=== PATIENT | male | born 1995 | race Caucasian/White ===

== ENCOUNTER 2018-02-23 16:02 | Emergency (ER) | payer BC ==
--- NOTE | 2018-02-23 16:58 | EDM.PDOC ---
ED HPI GENERAL MEDICAL PROBLEM - General Chief Complaint: Upper Extremity Injury/Pain Stated Complaint: INJURED RT HAND Time Seen by Provider: 02/23/18 16:23 Source of Information: Reports: Patient History Limitations: Reports: No Limitations - History of Present Illness INITIAL COMMENTS - FREE TEXT/NARRATIVE: HISTORY AND PHYSICAL: History of present illness: Patient is a 23-year-old male who presents to the emergency room with complaints of right hand pain. He states approximately 5 days ago he woke up with pain and swelling to the proximal right third digit. He does have multiple abrasions and superficial scratches to his hands and forearms bilaterally. He states "this is unrelated" and is unsure of how these occurred. He states he does scratch himself a lot indoor bump into things at work. Denies any fever, chills, chest pain, shortness of breath or cough. Denies any GI or symptoms. Review of systems: As per history of present illness and below otherwise all systems reviewed and negative. Past medical history: As per history of present illness and as reviewed below otherwise noncontributory. Surgical history: As per history of present illness and as reviewed below otherwise noncontributory. Social history: See social history for further information Family history: As per history of present illness and as reviewed below otherwise noncontributory. Physical exam: General: 23-year-old male. Alert and oriented. Nontoxic appearing and in no acute distress. HEENT: Atraumatic, normocephalic, pupils equal and reactive bilaterally, negative for conjunctival pallor or scleral icterus, mucous membranes moist, throat clear, neck supple, nontender, trachea midline. No drooling or trismus noted. No meningeal signs Lungs: Clear to auscultation, breath sounds equal bilaterally, chest nontender. Heart: S1S2, regular rate and rhythm without overt murmur Abdomen: Soft, nondistended, nontender. Negative for masses or hepatosplenomegaly. Negative for costovertebral tenderness. Pelvis: Stable nontender. Genitourinary: Deferred. Rectal: Deferred. Skin: Soft tissue swelling, redness and discomfort along the proximal right third MCP joint. Nonfluctuant, nonindurated. No drainage from the site. Multiple superficial abrasions and superficial scratches noted to bilateral forearms and hands. Otherwise skin is Intact, warm, dry. No lesions or rashes noted. Extremities: Atraumatic, moves all extremities per self without difficulty or deficits. negative for cords or calf pain. Neurovascular unremarkable. Neuro: Awake, alert, oriented. Cranial nerves II through XII unremarkable. Cerebellum unremarkable. Motor and sensory unremarkable throughout. Exam nonfocal. Notes: There is soft tissue swelling of the hand particularly along the MCP joint. No soft tissue gas seen. No foreign body. No fracture or subluxation or dislocation. The patient does have multiple abrasions and superficial scratches to bilateral forearms. There is one in particular along the right third digit where there is soft tissue swelling. He is unsure of why he has an abrasion at that site. It does look like an early cellulitis and therefore will treat it with Keflex. Encouraged him to follow-up with the hand surgeon or his primary care provider on Sunday. We discussed signs and symptoms that would prompt him to return to the emergency room. He voices understanding and is agreeable to plan of care. Diagnostics: Xray Therapeutics: Splint, Tdap Prescription: Keflex Tramadol Impression: Cellulitis, right hand Plan: 1. Keep your skin clean and dry. Continue to monitor for signs of improvement. Use the splint for comfort as directed. 2.Take your medications as directed. 3. Follow up with the Hand Surgeon or your primary care provider on Sunday. Return to the ED as needed and as discussed. Definitive disposition and diagnosis as appropriate pending reevaluation and review of above. Hand Pain Score (Numeric/FACES): 5 - Related Data Allergies Allergy/AdvReac Type Severity Reaction Status Date / Time No Known Allergies Allergy Verified 02/23/18 16:29 Home Meds: Home Meds Cephalexin [Keflex] 500 mg PO BID 7 Days #14 capsule 02/23/18 [Rx] traMADol [Ultram] 50 mg PO Q4H PRN #15 tab 02/23/18 [Rx] Past Medical History - Past Health History Medical/Surgical History: Denies Medical/Surgical History Social & Family History - Family History Family Medical History: Noncontributory - Tobacco Use Smoking Status *Q: Current Every Day Smoker Years of Tobacco use: 3 Packs/Tins Daily: 0.5 - Recreational Drug Use Recreational Drug Use: No Review of Systems - Review of Systems Review Of Systems: ROS reveals no pertinent complaints other than HPI. ED EXAM, GENERAL - Physical Exam Exam: See Below (See dictation) Course - Vital Signs Last Recorded V/S: Last Vital Signs Temp 97.2 F 02/23/18 16:27 Pulse 90 02/23/18 16:27 Resp 16 02/23/18 16:27 BP 120/76 02/23/18 16:27 Pulse Ox 98 02/23/18 16:27 - Orders/Labs/Meds Orders: Active Orders 24 hr Category Date Time Status Hand 2V Rt [CR] Stat Exams 02/23/18 16:08 Taken DME for Discharge [COMM] Stat Oth 02/23/18 17:11 Ordered Departure - Departure Time of Disposition: 17:17 Disposition: Home, Self-Care 01 Clinical Impression: Cellulitis Qualifiers: Site of cellulitis: extremity Site of cellulitis of extremity: upper extremity Laterality: right Qualified Code(s): L03.113 - Cellulitis of right upper limb - Discharge Information Prescriptions: Cephalexin [Keflex] 500 mg PO BID 7 Days #14 capsule traMADol [Ultram] 50 mg PO Q4H PRN #15 tab PRN Reason: Pain Referrals: PCP,Unknown [Primary Care Provider] - Forms: ED Department Discharge Additional Instructions: The following information is given to patients seen in the emergency department who are being discharged to home. This information is to outline your options for follow-up care. We provide all patients seen in our emergency department with a follow-up referral. The need for follow-up, as well as the timing and circumstances, are variable depending upon the specifics of your emergency department visit. If you don't have a primary care physician on staff, we will provide you with a referral. We always advise you to contact your personal physician following an emergency department visit to inform them of the circumstance of the visit and for follow-up with them and/or the need for any referrals to a consulting specialist. The emergency department will also refer you to a specialist when appropriate. This referral assures that you have the opportunity for follow-up care with a specialist. All of these measure are taken in an effort to provide you with optimal care, which includes your follow-up. Under all circumstances we always encourage you to contact your private physician who remains a resource for coordinating your care. When calling for follow-up care, please make the office aware that this follow-up is from your recent emergency room visit. If for any reason you are refused follow-up, please contact the [facility] Emergency Department at and asked to speak to the emergency department charge nurse. [facility] [address] [place] [address] [facility] [address] [place] [id number] [facility] - [facility] Professional Building [address] [place] [address], [address] [place] [address] 1. Keep your skin clean and dry. Continue to monitor for signs of improvement. Use the splint for comfort as directed. 2.Take your medications as directed. 3. Follow up with the Hand Surgeon or your primary care provider on Sunday. Return to the ED as needed and as discussed. - My Orders Last 24 Hours: My Active Orders 02/23/18 16:08 Hand 2V Rt [CR] Stat 02/23/18 17:11 DME for Discharge [COMM] Stat - Assessment/Plan Last 24 Hours: My Active Orders 02/23/18 16:08 Hand 2V Rt [CR] Stat 02/23/18 17:11 DME for Discharge [COMM] Stat
--- NOTE | 2018-02-25 17:43 | CR ---
EXAM DATE: 02/23/18 PATIENT'S AGE: 23 Patient: SANDEEP MARCOS Facility: [place], [place] Site . Site : 1995 Study: XRay Extremity Right hand [id number] 4:35:53 PM Ordering Physician: Doctor Noguera Final Report: INDICATION: Swelling and pain. TECHNIQUE: Three views of the right hand. COMPARISON: None. IMPRESSION: There is soft tissue swelling of the hand, particularly along the dorsum of the MCP joints. No soft tissue gas is seen. No foreign body. No fracture, subluxation or dislocation. Dictated by Jose Nolasco MD @ 02/23/2018 4:56:58 PM Dictated by: Jose Nolasco MD @ 02/23/2018 16:57:11 (Electronic Signature) Report Signed by Proxy. TALITA
== END 2018-02-23 17:40 | disposition home or self-care (01) ==
LOC: MW.ED 16:02
DX: S50.812A Abrasion of left forearm, initial encounter (principal); S50.811A Abrasion of right forearm, initial encounter; S60.512A Abrasion of left hand, initial encounter; S60.511A Abrasion of right hand, initial encounter; L03.113 Cellulitis of right upper limb; F17.210 Nicotine dependence, cigarettes, uncomplicated; W22.8XXA Striking against or struck by other objects, initial encounter
CPT/HCPCS: 73120-26-RT; 73120-RT; 99283

== ENCOUNTER 2018-03-23 18:31 | Day surgery (SDC) | payer BC ==
[2018-03-23] MEDS ORDERED: Sodium Chloride 0.9% 1,000 ML IV ONE ×2 (19:06→20:37)
[2018-03-23] MEDS ORDERED: Ondansetron 4 MG/2 ML SDV IVPUSH ONE (19:06)
[2018-03-23] MEDS ORDERED: Pantoprazole 40 MG Vial IVPUSH ONE (19:06)
[2018-03-23] MEDS ORDERED: Sodium Chloride 0.9% 10 ML Syringe FLUSH PRN ×2 (19:06→22:45)
[2018-03-23] MEDS ORDERED: Sodium Chloride 0.9% 2.5 ML Syringe FLUSH PRN ×2 (19:06→22:45)
--- NOTE | 2018-03-23 19:09 | EDM.PDOC ---
ED HPI GENERAL MEDICAL PROBLEM - General Chief Complaint: Abdominal Pain Stated Complaint: STOMACH PAIN Time Seen by Provider: 03/23/18 18:59 - History of Present Illness INITIAL COMMENTS - FREE TEXT/NARRATIVE: HISTORY AND PHYSICAL: History of present illness: The patient is a 23-year-old male with no significant GI history or abdominal surgical history who presents with complaints of mid abdominal pain and epigastric pain that started last evening and started gradually. He says he has had issues with heartburn like pain and has never been worked up for peptic ulcer disease or have seen her provider for these pain in the past. He says this is similar to prior episodes but it is lasting longer and seems to be more intense. The pain does not radiate to the lower abdomen or to the flanks and he has no urinary complaints. He had a normal bowel movement yesterday but no bowel movement today and his last stool was not black or bloody. He did not start vomiting until today and says that his last vomit was approximately 2 hours ago but he is been able to take some sips of water. He has not eaten all day. He drinks a lot of caffeinated products and admits to eating a poor diet filled with fast food. He denies alcohol use except for occasional social reasons. He describes the pain as a burning and aching and it does not radiate to his chest. He has no chest pain shortness of breath fevers chills or upper respiratory symptoms. Review of systems: As per history of present illness and below otherwise all systems reviewed and negative. Past medical history: As per history of present illness and as reviewed below otherwise noncontributory. Surgical history: As per history of present illness and as reviewed below otherwise noncontributory. Social history: No reported history of drug or alcohol abuse. Family history: As per history of present illness and as reviewed below otherwise noncontributory. Physical exam: General: Well-developed well-nourished thin man who is nontoxic and moves easily in the ED vital signs were noted by me HEENT: Atraumatic, normocephalic, negative for conjunctival pallor or scleral icterus, mucous membranes moist, throat clear, neck supple, nontender, trachea midline. Lungs: Clear to auscultation, breath sounds equal bilaterally, chest nontender. Heart: S1S2, regular rate and rhythm no overt murmurs Abdomen: Soft, nondistended, mild tenderness in the epigastrium and upper quadrants bilaterally without localization right or left. There is some tympany on percussion and bowel sounds are hypoactive. Negative for masses or hepatosplenomegaly. Negative for costovertebral tenderness. Pelvis: Stable nontender. Genitourinary: Deferred. Rectal: Deferred. Extremities: Atraumatic, negative for cords or calf pain. Neurovascular unremarkable. Neuro: Awake, alert, oriented. Cranial nerves II through XII unremarkable. Cerebellum unremarkable. Motor and sensory unremarkable throughout. Exam nonfocal. Diagnostics: CBC CMP amylase lipase H. pylori UA EKG abdominal x-rays with chest CT scan of the abdomen and pelvis Therapeutics: IV, IV fluids Protonix Zofran GI cocktail morphine Zosyn lactated Ringer's IV fluids maintenance Reevaluation the patient says he is no longer nauseated but he is still having this vague upper mid abdominal pain despite medications. I will give him a dose of morphine and a GI cocktail and proceed to do CT scan of the abdomen and pelvis 220: CT scan was called to me by the radiologist and he does have appendicitis. Dr. Yu is also aware at this time and will come in to evaluate the patient. She would like me to give him Zosyn and lactated Ringer's IV fluids. I discussed the testing results with the patient and he is also aware that he will need surgery. Impression: Upper abdominal pain with vomiting, appendicitis Definitive disposition and diagnosis as appropriate pending reevaluation and review of above. Upper Abdomen Pain Score (Numeric/FACES): 8 - Related Data Allergies Allergy/AdvReac Type Severity Reaction Status Date / Time No Known Allergies Allergy Verified 03/23/18 18:58 Home Meds: Home Meds . [No Known Home Meds] 03/23/18 [History] Past Medical History - Past Health History Medical/Surgical History: Denies Medical/Surgical History Musculoskeletal History: Reports: Arthritis Social & Family History - Family History Family Medical History: Noncontributory - Tobacco Use Smoking Status *Q: Current Every Day Smoker Years of Tobacco use: 4 Packs/Tins Daily: 0.5 - Recreational Drug Use Recreational Drug Use: No ED ROS GENERAL - Review of Systems Review Of Systems: ROS reveals no pertinent complaints other than HPI. ED EXAM, GENERAL - Physical Exam Exam: See Below (See dictation) Course - Vital Signs Last Recorded V/S: Last Vital Signs Temp 37.2 C 03/23/18 18:56 Pulse 100 03/23/18 21:14 Resp 18 03/23/18 21:14 BP 107/63 03/23/18 21:14 Pulse Ox 99 03/23/18 21:14 - Orders/Labs/Meds Orders: Active Orders 24 hr Category Date Time Status EKG Documentation Completion [RC] STAT Care 03/23/18 19:05 Active EKG Documentation Completion [RC] STAT Care 03/23/18 20:10 Active Lactated Ringers @ 125 MLS/HR(1,000ml) Med 03/23/18 22:15 Ordered Lactated Ringers [Ringers, Lactated] 1,000 ml IV ASDIRECTED Piperacillin/Tazobactam [Piperacil-Tazobact] 3.375 gm Med 03/23/18 22:10 Ordered Sodium Chloride 0.9% [Normal Saline] 50 ml IV ONETIME Sodium Chloride 0.9% [Saline Flush] Med 03/23/18 19:06 Active 10 ml FLUSH ASDIRECTED PRN Sodium Chloride 0.9% [Saline Flush] Med 03/23/18 19:06 Active 2.5 ml FLUSH ASDIRECTED PRN Saline Lock Insert [OM.PC] Stat Oth 03/23/18 19:05 Ordered Medication Orders Sodium Chloride (Saline Flush) 10 ml FLUSH ASDIRECTED PRN PRN Reason: Keep Vein Open Last Admin: 03/23/18 19:37 Dose: 10 ml Sodium Chloride (Saline Flush) 2.5 ml FLUSH ASDIRECTED PRN PRN Reason: Keep Vein Open Last Admin: 03/23/18 19:39 Dose: 2.5 ml Labs: Laboratory Tests 03/23/18 03/23/18 03/23/18 Range/Units 19:30 19:30 19:30 WBC 14.67 H (4.0-11.0) K/uL RBC 4.58 (4.50-5.90) M/uL Hgb 13.9 (13.0-17.0) g/dL Hct 40.9 (38.0-50.0) % MCV 89.3 (80.0-98.0) fL MCH 30.3 (27.0-32.0) pg MCHC 34.0 (31.0-37.0) g/dL RDW Std Deviation 42.5 (28.0-62.0) fl RDW Coeff of King 13 (11.0-15.0) % Plt Count 204 (150-400) K/uL MPV 10.80 (7.40-12.00) fL Neut % (Auto) 86.1 H (48.0-80.0) % Lymph % (Auto) 9.7 L (16.0-40.0) % [place] % (Auto) 3.9 (0.0-15.0) % Eos % (Auto) 0.2 (0.0-7.0) % Baso % (Auto) 0.1 (0.0-1.5) % Neut # (Auto) 12.6 H (1.4-5.7) K/uL Lymph # (Auto) 1.4 (0.6-2.4) K/uL [place] # (Auto) 0.6 (0.0-0.8) K/uL Eos # (Auto) 0.0 (0.0-0.7) K/uL Baso # (Auto) 0.0 (0.0-0.1) K/uL Nucleated RBC % 0.0 /100WBC Nucleated RBCs # 0 K/uL Sodium 139 (136-148) mmol/L Potassium 4.1 (3.5-5.1) mmol/L Chloride 103 (98-107) mmol/L Carbon Dioxide 25.1 (21.0-32.0) mmol/L BUN 20 H (7.0-18.0) mg/dL Creatinine 1.0 (0.8-1.3) mg/dL Est Cr Clr Drug Dosing 104.56 mL/min Estimated GFR (MDRD) > 60.0 ml/min Glucose 97 (74-106) mg/dL Calcium 9.9 (8.5-10.1) mg/dL Total Bilirubin 0.8 (0.2-1.0) mg/dL AST 14 L (15-37) IU/L ALT 12 L (14-63) IU/L Alkaline Phosphatase 108 (46-116) U/L Troponin I (0.000-0.056) ng/mL Total Protein 8.2 (6.4-8.2) g/dL Albumin 4.5 (3.4-5.0) g/dL Globulin 3.7 (2.6-4.0) g/dL Albumin/Globulin Ratio 1.2 (0.9-1.6) Amylase 55 (25-115) U/L Lipase 72 L (73-393) U/L Urine Color Urine Appearance Urine pH (5.0-8.0) Ur Specific Mchenry (1.001-1.035) Urine Protein (NEGATIVE) mg/dL Urine Glucose (UA) (NEGATIVE) mg/dL Urine Ketones (NEGATIVE) mg/dL Urine Occult Blood (NEGATIVE) Urine Nitrite (NEGATIVE) Urine Bilirubin (NEGATIVE) Urine Ictotest Urine Urobilinogen (<2.0) EU/dL Ur Leukocyte Esterase (NEGATIVE) H. pylori IgG Antibody NEGATIVE (NEG) 03/23/18 03/23/18 Range/Units 19:30 20:04 WBC (4.0-11.0) K/uL RBC (4.50-5.90) M/uL Hgb (13.0-17.0) g/dL Hct (38.0-50.0) % MCV (80.0-98.0) fL MCH (27.0-32.0) pg MCHC (31.0-37.0) g/dL RDW Std Deviation (28.0-62.0) fl RDW Coeff of King (11.0-15.0) % Plt Count (150-400) K/uL MPV (7.40-12.00) fL Neut % (Auto) (48.0-80.0) % Lymph % (Auto) (16.0-40.0) % [place] % (Auto) (0.0-15.0) % Eos % (Auto) (0.0-7.0) % Baso % (Auto) (0.0-1.5) % Neut # (Auto) (1.4-5.7) K/uL Lymph # (Auto) (0.6-2.4) K/uL [place] # (Auto) (0.0-0.8) K/uL Eos # (Auto) (0.0-0.7) K/uL Baso # (Auto) (0.0-0.1) K/uL Nucleated RBC % /100WBC Nucleated RBCs # K/uL Sodium (136-148) mmol/L Potassium (3.5-5.1) mmol/L Chloride (98-107) mmol/L Carbon Dioxide (21.0-32.0) mmol/L BUN (7.0-18.0) mg/dL Creatinine (0.8-1.3) mg/dL Est Cr Clr Drug Dosing mL/min Estimated GFR (MDRD) ml/min Glucose (74-106) mg/dL Calcium (8.5-10.1) mg/dL Total Bilirubin (0.2-1.0) mg/dL AST (15-37) IU/L ALT (14-63) IU/L Alkaline Phosphatase (46-116) U/L Troponin I < 0.050 (0.000-0.056) ng/mL Total Protein (6.4-8.2) g/dL Albumin (3.4-5.0) g/dL Globulin (2.6-4.0) g/dL Albumin/Globulin Ratio (0.9-1.6) Amylase (25-115) U/L Lipase (73-393) U/L Urine Color YELLOW Urine Appearance HAZY Urine pH 6.0 (5.0-8.0) Ur Specific Mchenry 1.025 (1.001-1.035) Urine Protein NEGATIVE (NEGATIVE) mg/dL Urine Glucose (UA) NEGATIVE (NEGATIVE) mg/dL Urine Ketones >=80 (NEGATIVE) mg/dL Urine Occult Blood NEGATIVE (NEGATIVE) Urine Nitrite NEGATIVE (NEGATIVE) Urine Bilirubin SMALL H (NEGATIVE) Urine Ictotest NEGATIVE Urine Urobilinogen 0.2 (<2.0) EU/dL Ur Leukocyte Esterase NEGATIVE (NEGATIVE) H. pylori IgG Antibody (NEG) Meds: Medications Generic Name Dose Route Start Last Admin Trade Name Freq PRN Reason Stop Dose Admin Sodium Chloride 10 ml 03/23/18 19:06 03/23/18 19:37 Saline Flush FLUSH 10 ml ASDIRECTED PRN Administration Keep Vein Open Sodium Chloride 2.5 ml 03/23/18 19:06 03/23/18 19:39 Saline Flush FLUSH 2.5 ml ASDIRECTED PRN Administration Keep Vein Open Discontinued Medications Generic Name Dose Route Start Last Admin Trade Name Freq PRN Reason Stop Dose Admin Al Hydroxide/Mg Hydroxide 15 0 ml 03/23/18 20:38 03/23/18 21:11 ml/ Metoclopramide HCl 5 mg/ PO 03/23/18 20:39 5 each Lidocaine HCl 5 ml ONETIME ONE Administration Sodium Chloride 1,000 mls @ 999 mls/hr 03/23/18 19:06 03/23/18 19:24 Normal Saline IV 03/23/18 20:06 999 mls/hr STAT ONE Administration Sodium Chloride 1,000 mls @ 999 mls/hr 03/23/18 20:37 03/23/18 21:09 Normal Saline IV 03/23/18 21:37 999 mls/hr STAT ONE Administration Iopamidol 100 ml 03/23/18 21:40 03/23/18 21:40 Isovue Multipack-370 (76%) IVPUSH 03/23/18 21:41 100 ml ONETIME STA Administration Morphine Sulfate 2 mg 03/23/18 20:37 03/23/18 21:10 Morphine IVPUSH 03/23/18 20:38 2 mg ONETIME ONE Administration Ondansetron HCl 4 mg 03/23/18 19:06 03/23/18 19:24 Zofran IVPUSH 03/23/18 19:07 4 mg ONETIME ONE Administration Pantoprazole Sodium 80 mg 03/23/18 19:06 03/23/18 19:25 Protonix Iv IVPUSH 03/23/18 19:07 80 mg .BOLUS ONE Administration Departure - Departure Time of Disposition: 22:11 Disposition: Still A Patient 30 Condition: Good Clinical Impression: Appendicitis Qualifiers: Appendicitis type: acute appendicitis Acute appendicitis type: unspecified acute appendicitis type Qualified Code(s): K35.80 - Unspecified acute appendicitis - Discharge Information Referrals: PCP,None [Primary Care Provider] - Forms: ED Department Discharge - My Orders Last 24 Hours: My Active Orders 03/23/18 19:05 EKG Documentation Completion [RC] STAT Saline Lock Insert [OM.PC] Stat 03/23/18 19:06 Sodium Chloride 0.9% [Saline Flush] 10 ml FLUSH ASDIRECTED PRN Sodium Chloride 0.9% [Saline Flush] 2.5 ml FLUSH ASDIRECTED PRN 03/23/18 20:10 EKG Documentation Completion [RC] STAT 03/23/18 22:10 Piperacillin/Tazobactam [Piperacil-Tazobact] 3.375 gm Sodium Chloride 0.9% [ Normal Saline] 50 ml IV ONETIME 03/23/18 22:15 Lactated Ringers @ 125 MLS/HR(1,000ml) Lactated Ringers [Ringers, Lactated] 1, 000 ml IV ASDIRECTED - Assessment/Plan Last 24 Hours: My Active Orders 03/23/18 19:05 EKG Documentation Completion [RC] STAT Saline Lock Insert [OM.PC] Stat 03/23/18 19:06 Sodium Chloride 0.9% [Saline Flush] 10 ml FLUSH ASDIRECTED PRN Sodium Chloride 0.9% [Saline Flush] 2.5 ml FLUSH ASDIRECTED PRN 03/23/18 20:10 EKG Documentation Completion [RC] STAT 03/23/18 22:10 Piperacillin/Tazobactam [Piperacil-Tazobact] 3.375 gm Sodium Chloride 0.9% [ Normal Saline] 50 ml IV ONETIME 03/23/18 22:15 Lactated Ringers @ 125 MLS/HR(1,000ml) Lactated Ringers [Ringers, Lactated] 1, 000 ml IV ASDIRECTED
[2018-03-23 20:00] LABS: CHLORIDE,CL 103 mmol/L (98-107); SODIUM,NA 139 mmol/L (136-148)
--- NOTE | 2018-03-23 20:15 | CR ---
HISTORY: Vomiting. Abdominal pain. TECHNIQUE: Acute abdominal series. COMPARISON: No prior. FINDINGS: The cardiac size and pulmonary vasculature are within normal limits. There is no lung infiltrate or pulmonary edema. No pneumothorax or pleural effusion. No acute bony abnormality. No free air. No dilated bowel loops to suggest a bowel obstruction. No pathologic calcifications seen. IMPRESSION: No acute disease. Dictated by Jeremi Shrestha MD @ 03/23/2018 8:13:02 PM Dictated by: Jeremi Shrestha MD @ 03/23/2018 20:13:08 (Electronically Signed)
[2018-03-23] MEDS ORDERED: Morphine 2 MG/ML Syringe IVPUSH ONE (20:37)
[2018-03-23] MEDS ORDERED: Alum Hydrox/Mag Hydrox/Simeth 15 ML, Metoclopramide 5 MG, Lidocaine 2% 5 ML PO ONE ×3 (20:38)
[2018-03-23] MEDS ORDERED: Iopamidol 755 MG/ML 500 ML Multipack Bottle IVPUSH STA (21:40)
--- NOTE | 2018-03-23 22:06 | CT ---
Indication: Pain. Technique: Multiple contiguous axial images were obtained from the lung bases through the symphysis pubis after the intravenous administration 100 milliliters Isovue 370. Please note that all CT scans at this facility use dose modulation, iterative reconstruction, and/or weight-based dosing when appropriate to reduce radiation dose to as low as reasonably achievable. Comparison: None Findings: The lung bases are clear. The heart is normal in size. No pericardial effusion is identified. The liver, gallbladder, spleen, pancreas, adrenals, and kidneys are normal. No intrahepatic biliary ductal dilatation is identified. No hydronephrosis is seen. In the pelvis, the urinary bladder is normal. The prostate gland is normal. The small and large bowel are normal in caliber. The appendix is seen. The appendix courses midline and is situated just superior to the level of the bladder. The appendix is enlarged measuring 17 mm in size. Patency of fat stranding is identified. Free fluid is identified within the pelvis. No definite free air is identified. No abscess is seen. The aorta is normal in caliber. No lytic or blastic lesions of the spine are seen. Impression: Findings most consistent with appendicitis. Free fluid is identified within the pelvis. No free air or abscess is identified. These findings were discussed with Dr. Walton at the time of this dictation. Please note that all CT scans at this facility use dose modulation, iterative reconstruction, and/or weight-based dosing when appropriate to reduce radiation dose to as low as reasonably achievable. Dictated by Sylvie Shea MD @ Mar 23 2018 9:59PM Signed by Dr. Sylvie Shea @ Mar 23 2018 10:04PM
[2018-03-23] MEDS ORDERED: Piperacillin/Tazobactam 3.375 GM in Sodium Chloride 0.9% 50 ML IV ONE (22:10)
--- NOTE | 2018-03-23 22:53 | PCM.HP ---
H&P History of Present Illness - General Date of Service: 03/23/18 Admit Problem/Dx: Admission Diagnosis/Problem Admission Diagnosis/Problem Appendicitis Source of Information: Patient History Limitations: Reports: No Limitations - History of Present Illness Initial Comments - Free Text/Narative: Patient is a 23 year old male who presents with 2 days of abdominal pain. It came on suddenly and has persisted. He tried to go to work today but was having difficulty lifting things and went home early. He developed nausea and vomiting. He had a subjective fever as well as chills. He came to the ER for evaluation. His WBC was 14K. He had a CT that showed a distended and inflamed appendix consistent with appendicitis. Upper Abdomen Pain Score (Numeric/FACES): 8 - Related Data Allergies/Adverse Reactions: Allergies Allergy/AdvReac Type Severity Reaction Status Date / Time No Known Allergies Allergy Verified 03/23/18 18:58 Home Medications: Home Meds . [No Known Home Meds] 03/23/18 [History] Past Medical History - Past Health History Medical/Surgical History: Denies Medical/Surgical History Musculoskeletal History: Reports: Arthritis Social & Family History - Family History Family Medical History: Noncontributory - Tobacco Use Smoking Status *Q: Current Every Day Smoker Years of Tobacco use: 4 Packs/Tins Daily: 0.5 - Recreational Drug Use Recreational Drug Use: No H&P Review of Systems - Review of Systems: Review Of Systems: ROS reveals no pertinent complaints other than HPI. Exam - Exam Exam: See Below - Vital Signs Vital Signs: Last Vital Signs Temp 37.2 C 03/23/18 18:56 Pulse 100 03/23/18 21:14 Resp 18 03/23/18 21:14 BP 107/63 03/23/18 21:14 Pulse Ox 99 03/23/18 21:14 Weight: 77.111 kg - Exam General: Alert, Oriented, Cooperative HEENT: Mucosa Moist & [place], Posterior Pharynx Clear Neck: Supple, Trachea Midline Lungs: Clear to Auscultation, Normal Respiratory Effort Cardiovascular: Regular Rate, Regular Rhythm GI/Abdominal Exam: Soft, No Distention, No Mass, Tender (Suprapubic) Extremities: Normal Inspection, Normal Range of Motion - Patient Data Lab Results Last 24 hrs: Laboratory Results - last 24 hr 03/23/18 03/23/18 03/23/18 Range/Units 19:30 19:30 19:30 WBC 14.67 H (4.0-11.0) K/uL RBC 4.58 (4.50-5.90) M/uL Hgb 13.9 (13.0-17.0) g/dL Hct 40.9 (38.0-50.0) % MCV 89.3 (80.0-98.0) fL MCH 30.3 (27.0-32.0) pg MCHC 34.0 (31.0-37.0) g/dL RDW Std Deviation 42.5 (28.0-62.0) fl RDW Coeff of [place] 13 (11.0-15.0) % Plt Count 204 (150-400) K/uL MPV 10.80 (7.40-12.00) fL Neut % (Auto) 86.1 H (48.0-80.0) % Lymph % (Auto) 9.7 L (16.0-40.0) % [place] % (Auto) 3.9 (0.0-15.0) % Eos % (Auto) 0.2 (0.0-7.0) % Baso % (Auto) 0.1 (0.0-1.5) % Neut # (Auto) 12.6 H (1.4-5.7) K/uL Lymph # (Auto) 1.4 (0.6-2.4) K/uL [place] # (Auto) 0.6 (0.0-0.8) K/uL Eos # (Auto) 0.0 (0.0-0.7) K/uL Baso # (Auto) 0.0 (0.0-0.1) K/uL Nucleated RBC % 0.0 /100WBC Nucleated RBCs # 0 K/uL Sodium 139 (136-148) mmol/L Potassium 4.1 (3.5-5.1) mmol/L Chloride 103 (98-107) mmol/L Carbon Dioxide 25.1 (21.0-32.0) mmol/L BUN 20 H (7.0-18.0) mg/dL Creatinine 1.0 (0.8-1.3) mg/dL Est Cr Clr Drug Dosing 104.56 mL/min Estimated GFR (MDRD) > 60.0 ml/min Glucose 97 (74-106) mg/dL Calcium 9.9 (8.5-10.1) mg/dL Total Bilirubin 0.8 (0.2-1.0) mg/dL AST 14 L (15-37) IU/L ALT 12 L (14-63) IU/L Alkaline Phosphatase 108 (46-116) U/L Troponin I (0.000-0.056) ng/mL Total Protein 8.2 (6.4-8.2) g/dL Albumin 4.5 (3.4-5.0) g/dL Globulin 3.7 (2.6-4.0) g/dL Albumin/Globulin Ratio 1.2 (0.9-1.6) Amylase 55 (25-115) U/L Lipase 72 L (73-393) U/L Urine Color Urine Appearance Urine pH (5.0-8.0) Ur Specific [place] (1.001-1.035) Urine Protein (NEGATIVE) mg/dL Urine Glucose (UA) (NEGATIVE) mg/dL Urine Ketones (NEGATIVE) mg/dL Urine Occult Blood (NEGATIVE) Urine Nitrite (NEGATIVE) Urine Bilirubin (NEGATIVE) Urine Ictotest Urine Urobilinogen (<2.0) EU/dL Ur Leukocyte Esterase (NEGATIVE) H. pylori IgG Antibody NEGATIVE (NEG) 03/23/18 03/23/18 Range/Units 19:30 20:04 WBC (4.0-11.0) K/uL RBC (4.50-5.90) M/uL Hgb (13.0-17.0) g/dL Hct (38.0-50.0) % MCV (80.0-98.0) fL MCH (27.0-32.0) pg MCHC (31.0-37.0) g/dL RDW Std Deviation (28.0-62.0) fl RDW Coeff of [place] (11.0-15.0) % Plt Count (150-400) K/uL MPV (7.40-12.00) fL Neut % (Auto) (48.0-80.0) % Lymph % (Auto) (16.0-40.0) % [place] % (Auto) (0.0-15.0) % Eos % (Auto) (0.0-7.0) % Baso % (Auto) (0.0-1.5) % Neut # (Auto) (1.4-5.7) K/uL Lymph # (Auto) (0.6-2.4) K/uL [place] # (Auto) (0.0-0.8) K/uL Eos # (Auto) (0.0-0.7) K/uL Baso # (Auto) (0.0-0.1) K/uL Nucleated RBC % /100WBC Nucleated RBCs # K/uL Sodium (136-148) mmol/L Potassium (3.5-5.1) mmol/L Chloride (98-107) mmol/L Carbon Dioxide (21.0-32.0) mmol/L BUN (7.0-18.0) mg/dL Creatinine (0.8-1.3) mg/dL Est Cr Clr Drug Dosing mL/min Estimated GFR (MDRD) ml/min Glucose (74-106) mg/dL Calcium (8.5-10.1) mg/dL Total Bilirubin (0.2-1.0) mg/dL AST (15-37) IU/L ALT (14-63) IU/L Alkaline Phosphatase (46-116) U/L Troponin I < 0.050 (0.000-0.056) ng/mL Total Protein (6.4-8.2) g/dL Albumin (3.4-5.0) g/dL Globulin (2.6-4.0) g/dL Albumin/Globulin Ratio (0.9-1.6) Amylase (25-115) U/L Lipase (73-393) U/L Urine Color YELLOW Urine Appearance HAZY Urine pH 6.0 (5.0-8.0) Ur Specific [place] 1.025 (1.001-1.035) Urine Protein NEGATIVE (NEGATIVE) mg/dL Urine Glucose (UA) NEGATIVE (NEGATIVE) mg/dL Urine Ketones >=80 (NEGATIVE) mg/dL Urine Occult Blood NEGATIVE (NEGATIVE) Urine Nitrite NEGATIVE (NEGATIVE) Urine Bilirubin SMALL H (NEGATIVE) Urine Ictotest NEGATIVE Urine Urobilinogen 0.2 (<2.0) EU/dL Ur Leukocyte Esterase NEGATIVE (NEGATIVE) H. pylori IgG Antibody (NEG) Result Diagrams: 03/23/18 19:30 03/23/18 19:30 - Problem List (1) Appendicitis SNOMED Code(s): 68933638 ICD Code: K37 - UNSPECIFIED APPENDICITIS Status: Acute Current Visit: Yes Qualifiers: Appendicitis type: acute appendicitis Acute appendicitis type: unspecified acute appendicitis type Qualified Code(s): K35.80 - Unspecified acute appendicitis Problem List Initiated/Reviewed/Updated: Yes Orders Last 24hrs: Active Orders 24 hr Category Date Time Status Patient Status [ADT] Routine ADT 03/23/18 22:45 Active Antiembolic Devices [RC] PER UNIT ROUTINE Care 03/23/18 22:46 Active EKG Documentation Completion [RC] STAT Care 03/23/18 19:05 Active EKG Documentation Completion [RC] STAT Care 03/23/18 20:10 Active Verify Patient Consent Obtain [RC] ASDIRECTED Care 03/23/18 22:45 Active Lactated Ringers [Ringers, Lactated] 1,000 ml Med 03/23/18 22:15 Active IV ASDIRECTED Sodium Chloride 0.9% [Saline Flush] Med 03/23/18 19:06 Active 10 ml FLUSH ASDIRECTED PRN Sodium Chloride 0.9% [Saline Flush] Med 03/23/18 22:45 Ordered 10 ml FLUSH ASDIRECTED PRN Sodium Chloride 0.9% [Saline Flush] Med 03/23/18 19:06 Active 2.5 ml FLUSH ASDIRECTED PRN Sodium Chloride 0.9% [Saline Flush] Med 03/23/18 22:45 Ordered 2.5 ml FLUSH ASDIRECTED PRN Peripheral IV Insertion Adult [OM.PC] Routine Oth 03/23/18 22:45 Ordered Saline Lock Insert [OM.PC] Stat Oth 03/23/18 19:05 Ordered Sequential Compression Device [OM.PC] Routine Oth 03/23/18 22:45 Ordered Resuscitation Status Routine Resus Stat 03/23/18 22:45 Ordered Medication Orders Lactated Ringer's (Ringers, Lactated) 1,000 mls @ 125 mls/hr IV ASDIRECTED ZULEIKA Sodium Chloride (Saline Flush) 10 ml FLUSH ASDIRECTED PRN PRN Reason: Keep Vein Open Last Admin: 03/23/18 19:37 Dose: 10 ml Sodium Chloride (Saline Flush) 2.5 ml FLUSH ASDIRECTED PRN PRN Reason: Keep Vein Open Last Admin: 03/23/18 19:39 Dose: 2.5 ml Sodium Chloride (Saline Flush) 10 ml FLUSH ASDIRECTED PRN PRN Reason: Keep Vein Open Sodium Chloride (Saline Flush) 2.5 ml FLUSH ASDIRECTED PRN PRN Reason: Keep Vein Open Assessment/Plan Comment:: The patient and I discussed the pathophysiology of appendicitis. I explained that the treatment is removal of the appendix. I will attempt this laparoscopically but should I be unable to complete this safely, I will convert to open. The patient and I discussed the post operative course for both ruptured and non-ruptured appendicitis. We discussed the risks of surgery including bleeding, infection, or damage to surrounding structures. The patient verbalized understanding and wishes to proceed. He is receiving IV zosyn. He last ate around 4pm tonight but did receive a GI cocktail in the ED.
[2018-03-23] MEDS: Lactated Ringers 1,000 ML IV SCH (22:59)
[2018-03-23] MEDS ORDERED: fentaNYL 250 MCG/5 ML SDV ONE (23:13)
[2018-03-23] MEDS ORDERED: Propofol 200 MG/20 ML SDV ONE (23:13)
--- NOTE | 2018-03-23 23:13 | PCM.PREANE ---
Preanesthetic Assessment - Anesthesia/Transfusion/Family Hx Anesthesia History: No Prior Anesthesia Family History of Anesthesia Reaction: No Transfusion History: No Prior Transfusion(s) - Review of Systems General: No Symptoms Pulmonary: No Symptoms Cardiovascular: No Symptoms Gastrointestinal: No Symptoms Neurological: No Symptoms Other: Reports: None - Physical Assessment NPO Status Date: 03/23/18 NPO Status Time: 16:00 Pulse: 92 O2 Sat by Pulse Oximetry: 97 Respiratory Rate: 16 Blood Pressure: 106/70 Vital Signs: Last Vital Signs Temp 98.9 F 03/23/18 18:56 Pulse 94 03/23/18 22:51 Resp 16 03/23/18 22:51 BP 106/70 03/23/18 22:51 Pulse Ox 97 03/23/18 22:51 Height: 5 ft 6 in Weight: 77.111 kg ASA Class: 2E Mental Status: Alert & Oriented x3 Airway Class: Mallampati = 1 Dentition: Reports: Normal Dentition Thyro-Mental Finger Breadths: 3 Mouth Opening Finger Breadths: 3 ROM/Head Extension: Full Lungs: Clear to Auscultation, Normal Respiratory Effort Cardiovascular: Regular Rate, Regular Rhythm - Lab Values: Laboratory Last Values WBC 14.67 K/uL (4.0-11.0) H 03/23/18 19:30 RBC 4.58 M/uL (4.50-5.90) 03/23/18 19:30 Hgb 13.9 g/dL (13.0-17.0) 03/23/18 19:30 Hct 40.9 % (38.0-50.0) 03/23/18 19:30 MCV 89.3 fL (80.0-98.0) 03/23/18 19:30 MCH 30.3 pg (27.0-32.0) 03/23/18 19:30 MCHC 34.0 g/dL (31.0-37.0) 03/23/18 19:30 RDW Std Deviation 42.5 fl (28.0-62.0) 03/23/18 19:30 RDW Coeff of [place] 13 % (11.0-15.0) 03/23/18 19:30 Plt Count 204 K/uL (150-400) 03/23/18 19:30 MPV 10.80 fL (7.40-12.00) 03/23/18 19: Neut % (Auto) 86.1 % (48.0-80.0) H 03/23/18: Lymph % (Auto) 9.7 % (16.0-40.0) L 03/23/18:30 [place] % (Auto) 3.9 % (0.0-15.0) 03/23/18: Eos % (Auto) 0.2 % (0.0-7.0) 03/23/18: Baso % (Auto) 0.1 % (0.0-1.5) 03/23/18: Neut # (Auto) 12.6 K/uL (1.4-5.7) H 03/23/18: Lymph # (Auto) 1.4 K/uL (0.6-2.4) 03/23/18: [place] # (Auto) 0.6 K/uL (0.0-0.8) 03/23/18: Eos # (Auto) 0.0 K/uL (0.0-0.7) 03/23/18: Baso # (Auto) 0.0 K/uL (0.0-0.1) 03/23/18: Nucleated RBC % 0.0 /100WBC 03/23/18: Nucleated RBCs # 0 K/uL 03/23/18: Sodium 139 mmol/L (136-148) 03/23/18: Potassium 4.1 mmol/L (3.5-5.1) 03/23/18: Chloride 103 mmol/L (98-107) 03/23/18: Carbon Dioxide 25.1 mmol/L (21.0-32.0) 03/23/18: BUN 20 mg/dL (7.0-18.0) H 03/23/18: Creatinine 1.0 mg/dL (0.8-1.3) 03/23/18: Est Cr Clr Drug Dosing 104.56 mL/min 03/23/18: Estimated GFR (MDRD) > 60.0 ml/min 03/23/18: Glucose 97 mg/dL (74-106) 02/09/19 19:30 Calcium 9.9 mg/dL (8.5-10.1) 03/23/18 19:30 Total Bilirubin 0.8 mg/dL (0.2-1.0) 03/23/18 19:30 AST 14 IU/L (15-37) L 03/23/18 19:30 ALT 12 IU/L (14-63) L 03/23/18 19:30 Alkaline Phosphatase 108 U/L (46-116) 03/23/18: Troponin I < 0.050 ng/mL (0.000-0.056) 03/23/18 19: Total Protein 8.2 g/dL (6.4-8.2) 03/23/18: Albumin 4.5 g/dL (3.4-5.0) 03/23/18: Globulin 3.7 g/dL (2.6-4.0) 03/23/18: Albumin/Globulin Ratio 1.2 (0.9-1.6) 03/23/18: Amylase 55 U/L (25-115) 03/23/18 19: Lipase 72 U/L (73-393) L 03/23/18 19:30 Urine Color YELLOW 03/23/18 20:04 Urine Appearance HAZY 03/23/18 20:04 Urine pH 6.0 (5.0-8.0) 03/23/18 20:04 Ur Specific [place] 1.025 (1.001-1.035) 03/23/18 20:04 Urine Protein NEGATIVE mg/dL (NEGATIVE) 03/23/18 20:04 Urine Glucose (UA) NEGATIVE mg/dL (NEGATIVE) 03/23/18 20:04 Urine Ketones >=80 mg/dL (NEGATIVE) 03/23/18 20:04 Urine Occult Blood NEGATIVE (NEGATIVE) 03/23/18 20:04 Urine Nitrite NEGATIVE (NEGATIVE) 03/23/18 20:04 Urine Bilirubin SMALL (NEGATIVE) H 03/23/18 20:04 Urine Ictotest NEGATIVE 03/23/18 20:04 Urine Urobilinogen 0.2 EU/dL (<2.0) 03/23/18 20:04 Ur Leukocyte Esterase NEGATIVE (NEGATIVE) 03/23/18 20:04 H. pylori IgG Antibody NEGATIVE (NEG) 03/23/18 19:30 - Allergies Allergies/Adverse Reactions: Allergies Allergy/AdvReac Type Severity Reaction Status Date / Time No Known Allergies Allergy Verified 03/23/18 18:58 - Anesthesia Plan Free Text/Narrative:: Large metal earrings. 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 [No Known Home Meds] 03/23/18 [History] - CURRENT (IN HOUSE) MEDS Current Meds: Current Medications Lactated Ringer's (Ringers, Lactated) 1,000 mls @ 125 mls/hr IV ASDIRECTED ZULEIKA Last Admin: 03/23/18 22:59 Dose: 125 mls/hr Sodium Chloride (Saline Flush) 10 ml FLUSH ASDIRECTED PRN PRN Reason: Keep Vein Open Last Admin: 03/23/18 19:37 Dose: 10 ml Sodium Chloride (Saline Flush) 2.5 ml FLUSH ASDIRECTED PRN PRN Reason: Keep Vein Open Last Admin: 03/23/18 19:39 Dose: 2.5 ml Discontinued Medications Al Hydroxide/Mg Hydroxide 15 ml/ Metoclopramide HCl 5 mg/Lidocaine HCl 5 ml 0 ml PO ONETIME ONE Stop: 03/23/18 20:39 Last Admin: 03/23/18 21:11 Dose: 5 each Sodium Chloride (Normal Saline) 1,000 mls @ 999 mls/hr IV STAT ONE Stop: 03/23/18 20:06 Last Admin: 03/23/18 19:24 Dose: 999 mls/hr Sodium Chloride (Normal Saline) 1,000 mls @ 999 mls/hr IV STAT ONE Stop: 03/23/18 21:37 Last Admin: 03/23/18 21:09 Dose: 999 mls/hr Piperacillin Sod/Tazobactam (Sod 3.375 gm/ Sodium Chloride) 50 mls @ 100 mls/ hr IV ONETIME ONE Stop: 03/23/18 22:39 Last Admin: 03/23/18 22:28 Dose: 100 mls/hr Iopamidol (Isovue Multipack-370 (76%)) 100 ml IVPUSH ONETIME STA Stop: 03/23/18 21:41 Last Admin: 03/23/18 21:40 Dose: 100 ml Morphine Sulfate (Morphine) 2 mg IVPUSH ONETIME ONE Stop: 03/23/18 20:38 Last Admin: 03/23/18 21:10 Dose: 2 mg Ondansetron HCl (Zofran) 4 mg IVPUSH ONETIME ONE Stop: 03/23/18 19:07 Last Admin: 03/23/18 19:24 Dose: 4 mg Pantoprazole Sodium (Protonix Iv) 80 mg IVPUSH .BOLUS ONE Stop: 03/23/18 19:07 Last Admin: 03/23/18 19:25 Dose: 80 mg Sodium Chloride (Saline Flush) 10 ml FLUSH ASDIRECTED PRN PRN Reason: Keep Vein Open Sodium Chloride (Saline Flush) 2.5 ml FLUSH ASDIRECTED PRN PRN Reason: Keep Vein Open
[2018-03-23] MEDS ORDERED: Midazolam 1 MG/ML 2 ML SDV ONE (23:18)
[2018-03-23] MEDS ORDERED: Bupivacaine 0.5% 10 ML SDV ONE (23:29)
[2018-03-23] MEDS ORDERED: Phenylephrine/Normal Saline 100 MCG/ML 10 ML Syringe ONE (23:53)
[2018-03-24] MEDS ORDERED: Succinylcholine 200 MG/10 ML MDV ONE (00:06)
[2018-03-24] MEDS ORDERED: Rocuronium 10 MG/ML 10 ML Syringe ONE (00:06)
[2018-03-24] MEDS ORDERED: Ketorolac 30 MG/ML SDV ONE (00:07)
[2018-03-24] MEDS ORDERED: fentaNYL 100 MCG/2 ML SDV IVPUSH PRN (00:19)
[2018-03-24] MEDS ORDERED: Glycopyrrolate 0.2 MG/ML SDV ONE (00:32)
[2018-03-24] MEDS ORDERED: Neostigmine Methylsulfate 1 MG/ML 5 ML Syringe ONE (00:32)
[2018-03-24] MEDS ORDERED: Meperidine PF 25 MG/ML Syringe ONE (00:45)
--- NOTE | 2018-03-24 00:46 | PCM.OPNOTE ---
- General Post-Op/Procedure Note Date of Surgery/Procedure: 03/24/18 Operative Procedure(s): Laparoscopic appendectomy Findings: Grossly inflamed and dilated appendix. Not perforated. Pre Op Diagnosis: Appendicitis Post-Op Diagnosis: Same Anesthesia Technique: General ET Tube Primary Surgeon: Sarai Turner Pathology: Appendix Fluid Replacement, Intraop: 1,300 Output, Urine Amount: 230 EBL in mLs: 5 Condition: Fair Free Text/Narrative:: Intake & Output 03/23/18 03/23/18 03/24/18 14:59 22:59 06:59 Output Total 230 Balance -230
[2018-03-24] MEDS ORDERED: Ondansetron 4 MG Tab PO PRN (00:53)
[2018-03-24] MEDS ORDERED: HYDROmorphone 1 MG/ML Syringe IVPUSH PRN (00:53)
[2018-03-24] MEDS ORDERED: Meperidine PF 25 MG/ML Syringe IVPUSH PRN (01:03)
--- NOTE | 2018-03-24 01:14 | PCM.POSTAN ---
POST ANESTHESIA ASSESSMENT - MENTAL STATUS Mental Status: Alert, Oriented - RESPIRATORY Respiratory Status: Respiratory Rate WNL, Airway Patent, O2 Saturation Stable - CARDIOVASCULAR CV Status: Pulse Rate WNL, Blood Pressure Stable - GASTROINTESTINAL GI Status: No Symptoms - POST OP HYDRATION Hydration Status: Adequate & Stable
[2018-03-24] MEDS: Acetaminophen/HYDROcodone 325-5 MG Tab PO PRN ×2 (05:12→10:48)
[2018-03-24] MEDS: Lactated Ringers 1,000 ML IV SCH (05:15)
--- NOTE | 2018-03-24 08:11 | PCM.SURGPN ---
- General Info Date of Service: 03/24/18 Date of Surgery/Procedure: 03/23/18 POD#: 1 Functional Status: Reports: Pain Controlled, Tolerating Diet, Ambulating, Urinating - Review of Systems General: Reports: No Symptoms HEENT: Reports: No Symptoms Pulmonary: Reports: No Symptoms Cardiovascular: Reports: No Symptoms Gastrointestinal: Reports: No Symptoms - Patient Data Vitals - Most Recent: Last Vital Signs Temp 36.2 C 03/24/18 07:00 Pulse 87 03/24/18 07:00 Resp 18 03/24/18 07:00 BP 99/54 L 03/24/18 07:00 Pulse Ox 97 03/24/18 07:00 Weight - Most Recent: 77.111 kg I&O - Last 24 Hours: Intake & Output 03/23/18 03/24/18 03/24/18 22:59 06:59 14:59 Intake Total 2965 Output Total 690 Balance 2275 Lab Results Last 24 Hrs: Laboratory Results - last 24 hr 03/23/18 03/23/18 03/23/18 Range/Units 19:30 19:30 19:30 WBC 14.67 H (4.0-11.0) K/uL RBC 4.58 (4.50-5.90) M/uL Hgb 13.9 (13.0-17.0) g/dL Hct 40.9 (38.0-50.0) % MCV 89.3 (80.0-98.0) fL MCH 30.3 (27.0-32.0) pg MCHC 34.0 (31.0-37.0) g/dL RDW Std Deviation 42.5 (28.0-62.0) fl RDW Coeff of King 13 (11.0-15.0) % Plt Count 204 (150-400) K/uL MPV 10.80 (7.40-12.00) fL Neut % (Auto) 86.1 H (48.0-80.0) % Lymph % (Auto) 9.7 L (16.0-40.0) % Morrison % (Auto) 3.9 (0.0-15.0) % Eos % (Auto) 0.2 (0.0-7.0) % Baso % (Auto) 0.1 (0.0-1.5) % Neut # (Auto) 12.6 H (1.4-5.7) K/uL Lymph # (Auto) 1.4 (0.6-2.4) K/uL Morrison # (Auto) 0.6 (0.0-0.8) K/uL Eos # (Auto) 0.0 (0.0-0.7) K/uL Baso # (Auto) 0.0 (0.0-0.1) K/uL Nucleated RBC % 0.0 /100WBC Nucleated RBCs # 0 K/uL Sodium 139 (136-148) mmol/L Potassium 4.1 (3.5-5.1) mmol/L Chloride 103 (98-107) mmol/L Carbon Dioxide 25.1 (21.0-32.0) mmol/L BUN 20 H (7.0-18.0) mg/dL Creatinine 1.0 (0.8-1.3) mg/dL Est Cr Clr Drug Dosing 104.56 mL/min Estimated GFR (MDRD) > 60.0 ml/min Glucose 97 (74-106) mg/dL Calcium 9.9 (8.5-10.1) mg/dL Total Bilirubin 0.8 (0.2-1.0) mg/dL AST 14 L (15-37) IU/L ALT 12 L (14-63) IU/L Alkaline Phosphatase 108 (46-116) U/L Troponin I (0.000-0.056) ng/mL Total Protein 8.2 (6.4-8.2) g/dL Albumin 4.5 (3.4-5.0) g/dL Globulin 3.7 (2.6-4.0) g/dL Albumin/Globulin Ratio 1.2 (0.9-1.6) Amylase 55 (25-115) U/L Lipase 72 L (73-393) U/L Urine Color Urine Appearance Urine pH (5.0-8.0) Ur Specific [place] (1.001-1.035) Urine Protein (NEGATIVE) mg/dL Urine Glucose (UA) (NEGATIVE) mg/dL Urine Ketones (NEGATIVE) mg/dL Urine Occult Blood (NEGATIVE) Urine Nitrite (NEGATIVE) Urine Bilirubin (NEGATIVE) Urine Ictotest Urine Urobilinogen (<2.0) EU/dL Ur Leukocyte Esterase (NEGATIVE) H. pylori IgG Antibody NEGATIVE (NEG) 03/23/18 03/23/18 Range/Units 19:30 20:04 WBC (4.0-11.0) K/uL RBC (4.50-5.90) M/uL Hgb (13.0-17.0) g/dL Hct (38.0-50.0) % MCV (80.0-98.0) fL MCH (27.0-32.0) pg MCHC (31.0-37.0) g/dL RDW Std Deviation (28.0-62.0) fl RDW Coeff of King (11.0-15.0) % Plt Count (150-400) K/uL MPV (7.40-12.00) fL Neut % (Auto) (48.0-80.0) % Lymph % (Auto) (16.0-40.0) % Morrison % (Auto) (0.0-15.0) % Eos % (Auto) (0.0-7.0) % Baso % (Auto) (0.0-1.5) % Neut # (Auto) (1.4-5.7) K/uL Lymph # (Auto) (0.6-2.4) K/uL Morrison # (Auto) (0.0-0.8) K/uL Eos # (Auto) (0.0-0.7) K/uL Baso # (Auto) (0.0-0.1) K/uL Nucleated RBC % /100WBC Nucleated RBCs # K/uL Sodium (136-148) mmol/L Potassium (3.5-5.1) mmol/L Chloride (98-107) mmol/L Carbon Dioxide (21.0-32.0) mmol/L BUN (7.0-18.0) mg/dL Creatinine (0.8-1.3) mg/dL Est Cr Clr Drug Dosing mL/min Estimated GFR (MDRD) ml/min Glucose (74-106) mg/dL Calcium (8.5-10.1) mg/dL Total Bilirubin (0.2-1.0) mg/dL AST (15-37) IU/L ALT (14-63) IU/L Alkaline Phosphatase (46-116) U/L Troponin I < 0.050 (0.000-0.056) ng/mL Total Protein (6.4-8.2) g/dL Albumin (3.4-5.0) g/dL Globulin (2.6-4.0) g/dL Albumin/Globulin Ratio (0.9-1.6) Amylase (25-115) U/L Lipase (73-393) U/L Urine Color YELLOW Urine Appearance HAZY Urine pH 6.0 (5.0-8.0) Ur Specific [place] 1.025 (1.001-1.035) Urine Protein NEGATIVE (NEGATIVE) mg/dL Urine Glucose (UA) NEGATIVE (NEGATIVE) mg/dL Urine Ketones >=80 (NEGATIVE) mg/dL Urine Occult Blood NEGATIVE (NEGATIVE) Urine Nitrite NEGATIVE (NEGATIVE) Urine Bilirubin SMALL H (NEGATIVE) Urine Ictotest NEGATIVE Urine Urobilinogen 0.2 (<2.0) EU/dL Ur Leukocyte Esterase NEGATIVE (NEGATIVE) H. pylori IgG Antibody (NEG) Med Orders - Current: Current Medications Hydrocodone Bitart/Acetaminophen ([place] 325-5 Mg) 2 tab PO Q4H PRN PRN Reason: Abdominal Pain Last Admin: 03/24/18 05:12 Dose: 2 tab Fentanyl (Sublimaze) 50 mcg IVPUSH Q5M PRN PRN Reason: Pain (severe 7-10) Stop: 03/25/18 00:20 Hydromorphone HCl (Dilaudid) 0.5 mg IVPUSH Q1H PRN PRN Reason: Abdominal Pain Lactated Ringer's (Ringers, Lactated) 1,000 mls @ 125 mls/hr IV ASDIRECTED [facility] Last Admin: 03/24/18 05:15 Dose: 125 mls/hr Influenza Virus Vaccine (Fluzone Quad 1370-3399 Syringe) 60 mcg IM .ONCE ONE Stop: 03/24/18 10:01 Meperidine HCl (Demerol) 25 mg IVPUSH ONETIME PRN PRN Reason: Other Ondansetron HCl (Zofran) 4 mg PO Q6H PRN PRN Reason: Nausea/Vomiting Sodium Chloride (Saline Flush) 10 ml FLUSH ASDIRECTED PRN PRN Reason: Keep Vein Open Last Admin: 03/23/18 19:37 Dose: 10 ml Sodium Chloride (Saline Flush) 2.5 ml FLUSH ASDIRECTED PRN PRN Reason: Keep Vein Open Last Admin: 03/23/18 19:39 Dose: 2.5 ml Discontinued Medications Bupivacaine HCl (Sensorcaine-Mpf 0.5%) Confirm Administered Dose 10 ml .ROUTE .STK-MED ONE Stop: 03/23/18 23:30 Al Hydroxide/Mg Hydroxide 15 ml/ Metoclopramide HCl 5 mg/Lidocaine HCl 5 ml 0 ml PO ONETIME ONE Stop: 03/23/18 20:39 Last Admin: 03/23/18 21:11 Dose: 5 each Fentanyl (Sublimaze) Confirm Administered Dose 250 mcg .ROUTE .STK-MED ONE Stop: 03/23/18 23:14 Glycopyrrolate (Robinul) Confirm Administered Dose 0.4 mg .ROUTE .STK-MED ONE Stop: 03/24/18 00:33 Sodium Chloride (Normal Saline) 1,000 mls @ 999 mls/hr IV STAT ONE Stop: 03/23/18 20:06 Last Admin: 03/23/18 19:24 Dose: 999 mls/hr Sodium Chloride (Normal Saline) 1,000 mls @ 999 mls/hr IV STAT ONE Stop: 03/23/18 21:37 Last Admin: 03/23/18 21:09 Dose: 999 mls/hr Piperacillin Sod/Tazobactam (Sod 3.375 gm/ Sodium Chloride) 50 mls @ 100 mls/ hr IV ONETIME ONE Stop: 03/23/18 22:39 Last Admin: 03/23/18 22:28 Dose: 100 mls/hr Influenza Virus Vaccine (Pharmacy To Dose - Influenza Vaccine) 1 each IM ONETIME ONE Stop: 03/24/18 01:56 Iopamidol (Isovue Multipack-370 (76%)) 100 ml IVPUSH ONETIME STA Stop: 03/23/18 21:41 Last Admin: 03/23/18 21:40 Dose: 100 ml Ketorolac Tromethamine (Toradol) Confirm Administered Dose 30 mg .ROUTE .STK- MED ONE Stop: 03/24/18 00:08 Meperidine HCl (Demerol) Confirm Administered Dose 25 mg .ROUTE .STK-MED ONE Stop: 03/24/18 00:46 Midazolam HCl (Versed 1 Mg/Ml) Confirm Administered Dose 2 mg .ROUTE .STK-MED ONE Stop: 03/23/18 23:19 Morphine Sulfate (Morphine) 2 mg IVPUSH ONETIME ONE Stop: 03/23/18 20:38 Last Admin: 03/23/18 21:10 Dose: 2 mg Neostigmine Methylsulfate (Neostigmine) Confirm Administered Dose 5 mg .ROUTE .STK-MED ONE Stop: 03/24/18 00:33 Ondansetron HCl (Zofran) 4 mg IVPUSH ONETIME ONE Stop: 03/23/18 19:07 Last Admin: 03/23/18 19:24 Dose: 4 mg Pantoprazole Sodium (Protonix Iv) 80 mg IVPUSH .BOLUS ONE Stop: 03/23/18 19:07 Last Admin: 03/23/18 19:25 Dose: 80 mg Phenylephrine HCl (Phenylephrine In Ns 100 Mcg/Ml) Confirm Administered Dose 1 mg .ROUTE .STK-MED ONE Stop: 03/23/18 23:54 Propofol (Diprivan 20 Ml) Confirm Administered Dose 200 mg .ROUTE .STK-MED ONE Stop: 03/23/18 23:14 Rocuronium [place] (Zemuron) Confirm Administered Dose 100 mg .ROUTE .STK-MED ONE Stop: 03/24/18 00:07 Sodium Chloride (Saline Flush) 10 ml FLUSH ASDIRECTED PRN PRN Reason: Keep Vein Open Sodium Chloride (Saline Flush) 2.5 ml FLUSH ASDIRECTED PRN PRN Reason: Keep Vein Open Succinylcholine Chloride (Quelicin) Confirm Administered Dose 200 mg .ROUTE .STK -MED ONE Stop: 03/24/18 00:07 - Exam Wound/Incisions: Dressing Dry and Intact, Drainage (minimal ) General: Alert, Oriented, Cooperative Lungs: Normal Respiratory Effort Cardiovascular: Regular Rate GI/Abdominal Exam: Soft, Non-Tender, No Distention, No Mass Skin: Warm, Dry, Intact Neurological: No New Focal Deficit Psy/Mental Status: Alert, Normal Affect, Normal Mood - Problem List & Annotations (1) Appendicitis SNOMED Code(s): 49249042 Code(s): K37 - UNSPECIFIED APPENDICITIS Status: Acute Current Visit: Yes Qualifiers: Appendicitis type: acute appendicitis Appendicitis gangrene presence: without gangrene Appendicitis perforation presence: without perforation Appendicitis abscess presence: without abscess Qualified Code(s): K35.80 - Unspecified acute appendicitis - Problem List Review Problem List Initiated/Reviewed/Updated: Yes - My Orders Last 24 Hours: Active Orders 24 hr Category Date Time Status Patient Status [ADT] Routine ADT 03/23/18 22:45 Active Antiembolic Devices [RC] PER UNIT ROUTINE Care 03/23/18 22:46 Active EKG Documentation Completion [RC] STAT Care 03/23/18 19:05 Active Influenza Vaccine Charge [RC] .DISCHARGE Care 03/24/18 01:55 Active Intake and Output [RC] Q12H Care 03/24/18 00:52 Active Notify Provider Vital Signs [RC] PRN Care 03/24/18 00:52 Active Oxygen Therapy [RC] PRN Care 03/24/18 00:52 Active Ready for Discharge [RC] PER UNIT ROUTINE Care 03/24/18 08:09 Ordered Up ad Ricarda [RC] ASDIRECTED Care 03/24/18 00:51 Active Vital Signs [RC] PER UNIT ROUTINE Care 03/24/18 00:52 Active Regular Diet [DIET] Diet 03/24/18 Breakfast Active Acetaminophen/HYDROcodone [[place] 325-5 MG] Med 03/24/18 00:52 Active 2 tab PO Q4H PRN FLU Vacc [id number] 36MOS UP/PF [Fluzone Quad 9000-8314 Med 03/24/18 10:00 Once Syringe] 60 mcg IM .ONCE ONE HYDROmorphone [Dilaudid] Med 03/24/18 00:53 Active 0.5 mg IVPUSH Q1H PRN Lactated Ringers [Ringers, Lactated] 1,000 ml Med 03/23/18 22:15 Active IV ASDIRECTED Meperidine [Demerol] Med 03/24/18 01:03 Active 25 mg IVPUSH ONETIME PRN Ondansetron [Zofran] Med 03/24/18 00:53 Active 4 mg PO Q6H PRN Sodium Chloride 0.9% [Saline Flush] Med 03/23/18 19:06 Active 10 ml FLUSH ASDIRECTED PRN Sodium Chloride 0.9% [Saline Flush] Med 03/23/18 19:06 Active 2.5 ml FLUSH ASDIRECTED PRN fentaNYL [Sublimaze] Med 03/24/18 00:19 Active 50 mcg IVPUSH Q5M PRN Peripheral IV Insertion Adult [OM.PC] Routine Oth 03/23/18 22:45 Ordered Saline Lock Insert [OM.PC] Stat Oth 03/23/18 19:05 Ordered Sequential Compression Device [OM.PC] Routine Oth 03/23/18 22:45 Ordered Resuscitation Status Routine Resus Stat 03/23/18 22:45 Ordered Medication Orders Hydrocodone Bitart/Acetaminophen ([place] 325-5 Mg) 2 tab PO Q4H PRN PRN Reason: Abdominal Pain Last Admin: 03/24/18 05:12 Dose: 2 tab Fentanyl (Sublimaze) 50 mcg IVPUSH Q5M PRN PRN Reason: Pain (severe 7-10) Stop: 03/25/18 00:20 Hydromorphone HCl (Dilaudid) 0.5 mg IVPUSH Q1H PRN PRN Reason: Abdominal Pain Lactated Ringer's (Ringers, Lactated) 1,000 mls @ 125 mls/hr IV ASDIRECTED [facility] Last Admin: 03/24/18 05:15 Dose: 125 mls/hr Infusion: 03/24/18 05:15 Dose: 125 mls/hr Admin: 03/23/18 22:59 Dose: 125 mls/hr Influenza Virus Vaccine (Fluzone Quad [id number] Syringe) 60 mcg IM .ONCE ONE Stop: 03/24/18 10:01 Meperidine HCl (Demerol) 25 mg IVPUSH ONETIME PRN PRN Reason: Other Ondansetron HCl (Zofran) 4 mg PO Q6H PRN PRN Reason: Nausea/Vomiting Sodium Chloride (Saline Flush) 10 ml FLUSH ASDIRECTED PRN PRN Reason: Keep Vein Open Last Admin: 03/23/18 19:37 Dose: 10 ml Sodium Chloride (Saline Flush) 2.5 ml FLUSH ASDIRECTED PRN PRN Reason: Keep Vein Open Last Admin: 03/23/18 19:39 Dose: 2.5 ml - Plan Plan (Free Text/Narrative):: Patient is feeling much better after surgery. Has only used pain meds once since the procedure. He is tolerating a diet and ambulating without difficulty. His vital signs are stable. The patient is cleared for discharge with follow up in my clinic in 2 weeks.
--- NOTE | 2018-03-24 08:25 | OR ---
SURGEON: RONALD ACOSTA MD DATE OF PROCEDURE: 03/24/2018 PREOPERATIVE DIAGNOSIS: Acute appendicitis. POSTOPERATIVE DIAGNOSIS: Acute appendicitis. PROCEDURE PERFORMED: Laparoscopic appendectomy. ANESTHESIA: General endotracheal anesthesia. FLUIDS: 1300 mL of crystalloid. ESTIMATED BLOOD LOSS: 5 mL. URINE OUTPUT: 230 mL. FINDINGS: Grossly enlarged and inflamed appendix, not perforated. COMPLICATIONS: None. INDICATIONS: The patient is a 23-year-old male who presents with 2 days of abdominal pain. Workup revealed a leukocytosis of 14,000, and a CT of the abdomen and pelvis showed a grossly inflamed and dilated appendix consistent with acute appendicitis. The patient and I discussed the pathophysiology of acute appendicitis. I explained that the treatment for this is appendectomy. I will attempt it laparoscopically, but should I be unable to perform it safely, I will convert it to open. The patient and I discussed the expected perioperative course as well as the risks including bleeding, infection, or damage to the surrounding structures. The patient verbalized understanding and wishes to proceed. PROCEDURE IN DETAIL: The patient was brought to the OR and placed on the OR table in supine position. A time-out was completed verifying the patient's name, age, date of , allergies, and procedure to be performed. General endotracheal anesthesia was induced. The left arm was tucked at the patient's side, and a Mccurdy catheter was placed. The abdomen was prepped and draped in the usual standard fashion. I anesthetized an area 2 fingerbreadths below the left subcostal margin in the midclavicular line with 0.5% Marcaine plain. A #11 blade was used to make 1-cm incision over this area. A 5 mm optical trocar was used to gain entry into the abdomen in the left upper quadrant. The layers of the abdominal wall were visualized upon entry. A 5 mm 30 degree scope was inserted into the abdomen, and I inspected the area underneath my initial trocar placement. No damage to the surrounding structures was noted. A 5-mm trocar was placed just left and lateral to the umbilicus under direct visualization. A 12-mm trocar was placed in the left lower quadrant under direct visualization. The patient was placed into Trendelenburg position and airplaned slightly to the left. I turned my attention towards the pelvis and noted the enlarged and inflamed appendix encased in the omentum. I grasped the appendix and swept away the omental attachments. A Harmonic Scalpel was used to take the last of these attachments down. Once the appendix was free, I then followed it to its base. I identified the cecum. I could see where the appendix inserted upon the cecum. I then used a Harmonic Scalpel to take down the appendiceal mesentery from distal to proximal fashion. The back side of the appendix was connected by retroperitoneal attachments. These were taken down using blunt dissection and a Harmonic Scalpel. Great care was taken to avoid damage to the surrounding structures. Once the appendix was freed of the retroperitoneal attachments, I was able to take down the appendiceal mesentery with a Harmonic Scalpel to the base of the appendix. The appendix was then elevated, and an endoscopic stapling device was brought into the field. I stapled and transected across the base of the appendix using a 45 mm blue load of susan. The appendix was placed in an EndoCatch bag and removed through the 12 mm port site. I then reinspected my operative field. No damage to the surrounding structures was noted. The area appeared to be hemostatic. A small amount of irrigation was used to clear up a small amount of free fluid and blood clots. This was suctioned out. I then removed the 12-mm trocar and closed the fascia with an interrupted 0 Vicryl suture using a Cy-Isa device. The 5-mm trocars were removed under direct visualization. The abdomen was allowed to desufflate. I then closed the 12 mm trocar site with interrupted 3-0 Vicryl through the abdominal wall and into the subcutaneous fat. I then closed the skin with a running 4-0 Monocryl stitch. The 5 mm trocar sites were closed with interrupted 4-0 Monocryl sutures. Steri-Strips and sterile dressings were applied. The patient tolerated the procedure well and was transferred to the PACU in stable condition. All counts were complete and correct at the end of the case. JENNIE MALDONADO /[id number]
--- NOTE | 2018-03-24 08:28 | PCM48HPAN ---
Post Anesthesia Note - EVALUATION WITHIN 48HRS OF ANESTHETIC Vital Signs in Normal Range: Yes Patient Participated in Evaluation: Yes Respiratory Function Stable: Yes Airway Patent: Yes Cardiovascular Function Stable: Yes Hydration Status Stable: Yes Pain Control Satisfactory: Yes Nausea and Vomiting Control Satisfactory: Yes Mental Status Recovered: Yes Pulse Rate: 92 Resp Rate: 18 Blood Pressure: 106/70 - COMMENTS/OBSERVATIONS Free Text/Narrative:: Patient sitting up in bed eating breakfast without any concerns. No apparent anesthesia complications or concerns.
== END 2018-03-24 10:30 | disposition home or self-care (01) ==
LOC: MW.ED 18:31 → MW.SDS 22:14 → MW.MS 22:55 → MW.SDS 03-24 10:30
PROVIDERS: ATTEND Surgery
DX: K35.80 Unspecified acute appendicitis (principal); F17.210 Nicotine dependence, cigarettes, uncomplicated
CPT/HCPCS: 36415; 44970; 74022; 74177; 80053; 81003; 82150; 83690; 84484; 85025; 86677; 90686; 93005; 96361; 96365; 96375; 99285; A9270; C9113; J0330; J1885; J2175; J2250; J2270; J2370; J2405; J2543; J2704; J3010; J3490; J7040; J7050; J7120; Q9967; 00840; 88304; 99284; G0008